=== PATIENT | female | born 1955 | race Caucasian/White ===

== ENCOUNTER 2019-12-17 14:24 | Outpatient (CLI) | payer MEDICARE, SELFPAY ==
--- NOTE | ~2019-12-17 | XR_ITS ---
EXAMINATION: XR abdomen/kub 1V DATE: 12/17/2019 14:47 INDICATION: Acute onset left flank pain TECHNIQUE: A supine view of the abdomen on 2 radiographs was obtained. COMPARISON: CT abdomen and pelvis dated 01/04/2011 FINDINGS: Small amount of gas and small to moderate amount of stool scattered throughout the colon. No dilated gas-filled loops of bowel to suggest obstruction. A few unchanged phleboliths in the left hemipelvis. Atherosclerotic ossification projects over the left sacral ala and slightly inferomedial to the left sacral iliac joint. No evident urolithiasis. Mild lumbar levocurvature. Severe degenerative disc dis ease at L4-L5. Moderate bilateral hip osteoarthritis with prominent subarticular cystic change at the bilateral acetabula. Visualized lung bases are clear. Heart size is normal. IMPRESSION: 1. Normal bowel gas pattern. No evident urolithiasis. 2. Moderate bilateral hip osteoarthritis and severe spondylosis at L4-L5. Reviewed, dictated and finalized at location D.
--- NOTE | ~2019-12-17 | CT_ITS ---
EXAMINATION: CT abdomen pelvis wo con DATE: 12/17/2019 15:10 INDICATION: Left abdominal pain. Nausea. TECHNIQUE: Computed tomography (CT) of the abdomen and pelvis was performed without intravenous contr ast. Automated exposure control and iterative reconstruction technique were employed. The dose-length product was 363.70 mGy-cm. COMPARISON: CT abdomen and pelvis 01/04/2011 FINDINGS: The visualized portions of the lung bases demonstrate mild atelectasis. No pleural effusion . The heart size is normal. No pericardial effusion. There are bilateral breast implants. The liver, gallbladder, spleen, pancreas, adrenal glands, and right kidney are normal. There is a 2 mm stone in left kidney. The appendix is normal. There are no dilated loops of bowel. There are no pathologically enlarged lymph nodes. There is no free intraperitoneal fluid. There is severe lumbar spondylosis and moderate thoracic spondylosis. IMPRESSION: 1. 2 mm nonobstructing left kidney stone. Reviewed, dictated and finalized at location A.
== END 2019-12-17 14:25 | disposition home or self-care (01) ==
PROVIDERS: PCP Family Medicine
DX: N20.0 Calculus of kidney (principal); M16.0 Bilateral primary osteoarthritis of hip
CPT/HCPCS: 74018; 74176

== ENCOUNTER → 2020-03-17 14:32 | Outpatient (CLI) | payer MEDICARE, SELFPAY ==
--- NOTE | ~2020-03-17 | XR_ITS ---
EXAMINATION: XR knee LT min 4V DATE: 03/17/2020 15:19 INDICATION: Left knee pain. TECHNIQUE: 4 views of left knee were obtained. COMPARISON: None. FINDINGS: Bone alignment is normal. No fracture. There is mild tricompartmental osteoarthritis. No kn ee joint effusion. IMPRESSION: 1. Mild left knee osteoarthritis. Reviewed, dictated and finalized at location A.
== END ==
PROVIDERS: PCP Family Medicine; Visit Provider Family Medicine
DX: M25.562 Pain in left knee (principal); M17.12 Unilateral primary osteoarthritis, left knee
CPT/HCPCS: 73564

== ENCOUNTER → 2020-05-20 08:56 | Outpatient (CLI) | payer MEDICARE, SELFPAY ==
--- NOTE | ~2020-05-20 | US_ITS ---
EXAMINATION: US breast BI complete HISTORY: Screening breast ultrasound is performed. Patient does not desire screening mammography. TECHNIQUE: Ultrasound is performed in all four quadrants of the breasts including the bilateral subar eolar regions. FINDINGS: Right breast: There is a 5 mm x 3 mm oval, circumscribed, parallel, hypoechoic mass at the 12:00 loca tion 4 cm from the nipple with no posterior features or internal vascularity. Masses with similar son ographic features measure 3 mm x 2 mm at the 9:00 location 6 cm from the nipple and 2 mm x 1 mm at th e 9:00 location 6 cm from the nipple. There is a 5 mm x 2 mm oval, circumscribed, parallel, anechoic mass with no posterior features or internal vascularity at the 1:00 location 4 cm from the nipple. Left breast: There is a 4 mm x 3 mm oval, circumscribed, parallel, hypoechoic mass with no posterior features at the 2:00 location 4 cm from the nipple. Masses with similar sonographic features measure 3 mm x 2 mm at the 2:00 location 4 cm from the nipple and 3 mm x 2 mm at the 9:00 location 4 cm from the nipple. IMPRESSION: Probably benign bilateral breast masses. Follow-up ultrasound in six months is recommended. Of note, ultrasound is not a substitute for screening mammography and screening mammography is recommended. BI-RADS category 3, probably benign findings. Reviewed, dictated and finalized at location A. HAUL DRIVER
== END ==
PROVIDERS: Visit Provider Obstetrics & Gynecology Gynecology
DX: Z98.82 Breast implant status (principal); R92.8 Other abnormal and inconclusive findings on diagnostic imaging of breast
CPT/HCPCS: 76641

== ENCOUNTER → 2020-07-27 14:29 | Outpatient (CLI) | payer MEDICARE, SELFPAY ==
--- NOTE | ~2020-07-27 | XR_ITS ---
XR_CERV2-3V_CR DATE: 07/27/2020 15:32 INDICATION: Neck pain TECHNIQUE: AP, open mouth, odontoid, lateral and swimmer views COMPARISON: 09/26/2006 cervical spine FINDINGS: There is straightening of the cervical spine. C1 and C2 are normally aligned and the odontoid process is intact. There is minimal anterolisthesis at C2-3, C3-4, C5-6. There is fusion anteriorly at C5-6. There is mild to moderate degenerative disc disease at C4-5. There is severe degenerative disc disease at C6-7. IMPRESSION: Straightening Minimal anterolisthesis at multiple levels Severe degenerative disc disease at C6-7 Mild to moderate degenerative disc disease at C4-5 Reviewed, dictated and finalized at Location A. Reviewed, dictated and finalized at location A. NE GENERATOR ASSEMBLER
== END ==
PROVIDERS: PCP Internal Medicine; Visit Provider Nurse Practitioner
DX: M47.812 Spondylosis without myelopathy or radiculopathy, cervical region (principal)
CPT/HCPCS: 72040

== ENCOUNTER 2020-08-04 14:36 | Outpatient (CLI) | payer MEDICARE, SELFPAY ==
--- NOTE | ~2020-08-04 | MR_ITS ---
EXAMINATION: MR cervical spine wo con EXAM DATE: 08/04/2020 15:40 INDICATION: M54.2 - Cervicalgia. TECHNIQUE: Multi-sequential, multiplanar MR images of the cervical spine were obtained without contra st. Axial T2, axial T2 MERGE sequence. Sagittal T1, T2, T2 fat saturation images also obtained. Th ere is no prior study for comparison. FINDINGS: There is osseous fusion of the C5-6 vertebral bodies. There is moderate to severe disc dis ease C6-7 with 2 mm retrolisthesis. There is mild to moderate disc disease C7-T1 with 2 mm anterolist hesis. The spinal cord signal intensity and intrinsic morphology is normal. Cervicomedullary junction is normal in appearance. There are no suspicious marrow signal abnormalities. Paraspinal soft tiss ue is unremarkable. Level by level evaluation: C2-C3: Disc does not extend beyond the endplate margin. Uncovertebral joint arthropathy: Mild to moderate right. Facet joint arthropathy: Moderate to severe right, mild to moderate left. Neural foraminal stenosis: Mild right. Central canal stenosis: No stenosis. C3-C4: Disc does not extend beyond the endplate margin. Uncovertebral joint arthropathy: Mild bilateral. Facet joint arthropathy: Moderate to severe left, moderate right. Neural foraminal stenosis: Mild to moderate left, mild right. Central canal stenosis: No stenosis. C4-C5: Disc does not extend beyond the endplate margin. Uncovertebral joint arthropathy: Mild bilateral. Facet joint arthropathy: Severe left, mild to moderate right. Neural foraminal stenosis: No stenosis. Central canal stenosis: No stenosis. C5-C6: This level is fused. Uncovertebral joint arthropathy: Fused. Facet joint arthropathy: None. Neural foraminal stenosis: No stenosis. Central canal stenosis: No stenosis. C6-C7: There is a mild to moderate diffuse disc bulge. Uncovertebral joint arthropathy: Severe bilateral. Facet joint arthropathy: Mild to moderate bilateral. Neural foraminal stenosis: Severe left, moderate to severe right. Central canal stenosis: Mild to moderate . Central canal measures 6-7 mm in mid sagittal AP diameter . C7-T1: There is a mild diffuse disc bulge. Uncovertebral joint arthropathy: Moderate to severe bilateral. Facet joint arthropathy: Moderate right, mild to moderate left. Neural foraminal stenosis: Mild to moderate left, mild right. Central canal stenosis: Mild. IMPRESSION: 1. Cervical spondylosis most advanced C6-7. 2. Fusion C5-6. Reviewed, dictated and finalized at location B. IC ADMINISTRATOR
== END 2020-08-04 14:37 | disposition home or self-care (01) ==
PROVIDERS: Family Provider Family Medicine; PCP Internal Medicine; Visit Provider Nurse Practitioner
DX: M54.2 Cervicalgia (principal); Z98.890 Other specified postprocedural states
CPT/HCPCS: 72141

== ENCOUNTER → 2021-02-04 09:20 | Outpatient (CLI) | payer MEDICARE, SELFPAY ==
--- NOTE | ~2021-02-04 | MMUS_ITS ---
EXAMINATION: MM scrn jam implant BI w mila, US breast BI complete HISTORY: Follow-up breast mass TECHNIQUE: Screening bilateral mammogram including 3-D tomosynthesis images of the breasts were perfo rmed and synthetic 2-D images were generated. CAD analysis was submitted and interpreted. High resolu tion bilateral complete breast ultrasound was performed. COMPARISON: Comparison to multiple prior studies sequentially, with oldest reviewed study dated 02/18. BREAST PARENCHYMAL COMPOSITION: Breast composed of scattered areas of fibroglandular density. FINDINGS: MAMMOGRAPHIC FINDINGS: There are no suspicious masses, calcifications or architectural distortion in either breast to sugges t malignancy. ULTRASOUND: Right breast ultrasound: At 12:00, 4 cm from the nipple, just superficial to the breast implant there is an oval hypoechoic mass measuring 4 x 3 x 3 mm with mixed posterior attenuation. No internal vasc ularity. At 1:00, 4 cm from the nipple, there is a 3 mm cyst. At 9:00, 6 cm from the nipple, there is a 3 mm cyst. Left breast ultrasound: Near the areola there is a 2 mm cyst. At 9:00, 4 cm from the nipple, there is a 3 mm cyst. IMPRESSION: 1. Probable benign 4 mm hypoechoic right breast mass at 12:00, 4 cm from the nipple. No evidence for malignancy in the left breast. 2. Recommend 6 month follow-up targeted right breast ultrasound BI-RADS category 3, probably benign findings. Reviewed, dictated and finalized at location A. IMPRESSION: 1. Probable benign 4 mm hypoechoic right breast mass at 12:00, 4 cm from the ni pple. No evidence for malignancy in the left breast. 2. Recommend 6 month follow-up targeted right breast ultrasound BI-RADS category 3, probably benign findings.
== END ==
PROVIDERS: Visit Provider Obstetrics & Gynecology Gynecology
DX: Z12.31 Encounter for screening mammogram for malignant neoplasm of breast (principal); N63.15 Unspecified lump in the right breast, overlapping quadrants
CPT/HCPCS: 76641; 77063; 77067

== ENCOUNTER 2021-06-15 07:44 | Emergency (ER) | payer MEDICARE, SELFPAY ==
--- NOTE | ~2021-06-15 | CT_ITS ---
EXAMINATION: CT abdomen pelvis w con EXAM DATE: 06/15/2021 09:18 INDICATION: Left lower quadrant pain, acute chills. TECHNIQUE: Spiral CT of the abdomen and pelvis was performed following intravenous injection of 100 m L Omnipaque 350. Axial, coronal and sagittal images of the abdomen and pelvis were reviewed. The do se-length product (DLP) for this examination was 418.48 mGy-cm. The exposure was tailored according to patient size (auto mA exposure control), and iterative reconstruction (ASIR) was used as additiona l dose reduction technique. Comparison is made to prior examination from 12/17/2019. FINDINGS: The liver, spleen, adrenal glands and pancreas are unremarkable. Gallbladder is unremarkab le. No biliary obstruction. There is punctate 2 mm left UVJ calcification identified on axial image 159. There is mild left hydro ureteronephrosis mildly delayed left nephrogram compared to right. Also some enhancement of the uroth elium, possible upper urinary tract infection. No evidence of pyelonephritis. Additional 3 mm left davis perior calyceal stone. Several subcentimeter hypodensities statistically most likely cysts. The uter us is not identified and has likely been surgically resected. The bladder is unremarkable. There is no retroperitoneal or pelvic lymphadenopathy. There is mild scattered arteriosclerotic disease. The appendix is normal. The stomach and small bowel are unremarkable. There is expected amount of c olonic stool. There is mild scattered colonic diverticulosis. There is no adjacent inflammatory betancur ge to suggest diverticulitis. No free intraperitoneal gas. The heart is normal in size. There are no pericardial or pleural effusions. There is 4 mm right middle lobe nodule. There are no osteobla stic or osteolytic lesions identified. IMPRESSION: 1. Left UVJ 2 mm stone, mild obstructive nephropathy and possible upper urinary tract infection. 2. Small left nephrolithiasis. 3. Mild scattered colonic diverticulosis. Reviewed, dictated and finalized at location B. ICAL TECHNICIAN IMPRESSION: 1. Left UVJ 2 mm stone, mild obstructive nephropathy and possible upper urinar y tract infection. 2. Small left nephrolithiasis. 3. Mild scattered colonic diverticulosis.
[2021-06-15 08:00] VITALS: BP 190/95; PULSE 84; RESP 16; TEMP 36.8; O2SAT 97
--- NOTE | 2021-06-15 08:02 | ED.GENADULT ---
HPI - General Adult General Chief complaint: Abdominal Pain Stated complaint: left abd pain Time Seen by Provider: 06/15/21 07:56 History of Present Illness HPI narrative: Patient is a 5-year-old female presents the emergency department with chief complaint of left lower quadrant pain. Patient reports that in the last 24 hours she started having pain in the left lower quadrant patient states she had a feeling like she is going to vomit but has not actually vomited and does have some reflux with this. Patient states she had some loose stools but no blood in her stool patient states the pain is worse with movement and improved with rest. Patient states the pain starts in the left lower quadrant and radiates to her back. Related Data Home Medications Medication Instructions Recorded Confirmed Bcomplex-C #13-folic acid 1 mg-vit tablet PO 03/16/20 05/03/21 D3 1,750 unit disintegrating tablet coenzyme Q10 100 mg capsule 100 mg PO DAILY 03/16/20 05/03/21 ergocalciferol (vitamin D2) 1,250 1,250 mcg PO WEEKLY 03/16/20 05/03/21 mcg (50,000 unit) capsule multivitamin 1 tablet PO DAILY 03/16/20 05/03/21 omega-3 fatty acids 1,000 mg 1,000 mg PO DAILY 03/16/20 05/03/21 capsule rosuvastatin 10 mg tablet 10 mg PO DAILY 03/16/20 05/03/21 Allergies Allergy/AdvReac Type Severity Reaction Status Date / Time vancomycin Allergy Severe Hives Verified 06/15/21 08:20 trimethoprim Allergy Unknown rash Verified 06/15/21 08:20 sulfamethoxazole AdvReac Severe Nausea and Verified 06/15/21 08:20 Vomiting sulfamethizole AdvReac Mild Nausea Verified 06/15/21 08:20 Review of Systems Review of Systems: A 10 system review of systems was completed on the patient and is negative except for what is stated in the HPI. Nursing and ancillary documentation was reviewed. 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) Irritable bowel syndrome Neck pain with history of cervical spinal surgery Other and unspecified hyperlipidemia Tobacco abuse Surgical History Surgical History History of bladder suspension procedure History of breast augmentation History of hysterectomy History of lumbar fusion Hx of fusion of cervical spine Family History Family History Mother Family history of diabetes mellitus in first degree relative Heart disease Father Gunshot wound Grandparent Dementia Sibling Cerebrovascular accident Social History Social History Smoking packs per day: 1 Smoking cigarettes per day: 20.0 Years smoked: 30 Smoking pack-years: 30.00 Smoking status: Former smoker Second hand tobacco smoke exposure: No Smoking end date: 07/02/04 Alcohol intake: current Alcohol use details: social Substance use: never Substance use type: does not use Exam Narrative: GENERAL: Well-appearing, well-nourished, and in no acute distress. HEAD: Normocephalic, atraumatic. EYES: PERRLA and EOMI. ENT: Nares clear, no rhinorrhea or epistaxis. Mucous membranes moist. NECK: Supple. CHEST: Clear to auscultation. No respiratory distress. HEART: Regular rate and rhythm. No murmur heard. Normal peripheral pulses. ABDOMEN: Soft, tender to palpation in the left lower quadrant, nondistended, normal active bowel sounds. EXTREMITIES: Normal range of motion. No edema. SKIN: Warm, dry, no rash. NEURO: No focal deficits. Alert and oriented x3. PSYCH: Normal mood and affect. Course Vital Signs Vital signs: Vital Signs Temperature 36.8 C 06/15/21 08:00 Pulse Rate 84 06/15/21 08:00 Respir
[2021-06-15] MEDS: ONDANSETRON INJ 4 MG/2 ML VIAL IV PUSH (08:28)
[2021-06-15] MEDS: SODIUM CHLORIDE 0.9% IV 1,000 ML 999 ML IV CONT (08:28)
[2021-06-15] MEDS: MORPHINE SULFATE (*CRX) 4 MG/ML INJ IV PUSH (08:28)
[2021-06-15 08:36] LABS: Basophils Absolute Auto 0.1 K/mm3 (0.0-0.1); Basophils Percent Auto 0.4 % (0.2-1.2); Eosinophils Absolute Auto 0.1 K/mm3 (0-0.3); Eosinophils Percent Auto 0.4 % (0-4.4); Hematocrit 42.3 % (37.0-47.0); Hemoglobin 14.5 g/dL (12.0-15.0); Immature Granulocyte Absolute 0.04 K/mm3 (0.00-0.031); Immature Granulocyte Percent A 0.3 % (0-0.5); Lymphocytes Absolute Auto 1.28 K/mm3 (0.9-3.2); Lymphocytes Percent Auto 9.9 % (18.3-44.2); Mean Corpuscular HGB Conc 34.3 g/dl (32-36); Mean Corpuscular Hemoglobin 32.7 pg (26-34); Mean Corpuscular Volume 95.3 fl (80-100); Mean Platelet Volume 10.7 fl (7.4-10.4); Monocytes Absolute Auto 0.6 K/mm3 (0.1-0.6); Monocytes Percent Auto 4.7 % (2.6-8.5); Neutrophils Absolute Auto 10.9 K/mm3 (1.3-6.7); Neutrophils Percent Auto 84.3 % (45.5-73.1); Platelet Count Result 208 k/mm3 (150-375); Red Blood Count 4.44 M/mm3 (4.2-5.4); Red Cell Distribution Width 12.5 % (11.5-14.5); White Blood Count 12.9 K/mm3 (4.5-10.0)
[2021-06-15 08:51] LABS: Add Urine Microscopic? YES; Appearance Urine Cloudy (Clear); Bacteria Urine Trace /hpf; Bilirubin Urine Negative (Negative); Blood Urine Negative (Negative); Color Urine Yellow (Yellow); Glucose Urine UA Negative (Negative); Ketones Urine Negative (Negative); Leukocyte Esterase Ur Negative LEU/UL (Negative); Mucus Urine Rare /lpf; Nitrate Urine Negative (Negative); Protein Urine Negative (Negative); Specific Grav Ur 1.023 (1.001-1.035); Squamous Epithelial Cell Urine Many /hpf (Few); Urobilinogen Urine Negative mg/dL (<2.0); WBC Urine 0-3 /hpf
[2021-06-15 08:52] LABS: Alanine Aminotransferase 33 U/L (4-35); Albumin Level 4.3 g/dL (3.5-5.1); Alkaline Phosphatase 84 U/L (38-126); Anion Gap 8 mmol/L (8-16); Aspartate Amino Transferase 35 U/L (14-36); Bilirubin,Total 0.4 mg/dL (0.2-1.3); Blood Urea Nitrogen 31 mg/dL (7-17); Calcium 9.2 mg/dL (8.4-10.2); Carbon Dioxide 24 mmol/L (22-30); Chloride 103 mmol/L (98-107); Estimated CRCL calculation 58 ml/min; Estimated Glomerular Filt Rate > 60; Glucose 122 mg/dL (65-110); Lactic Acid Reflex 1.4 mmol/L (0.7-2.1); Lipase 151 U/L (23-300); Potassium 4.2 mmol/L (3.4-5.0); Sodium 135 mmol/L (137-145)
[2021-06-15] MEDS: HYDROmorphone HCL INJ (*CRX) 1 MG/ML SYR IV PUSH (10:03)
[2021-06-15 11:07] VITALS: BP 126/76; PULSE 78; RESP 18; O2SAT 99
== END 2021-06-15 11:09 | disposition home or self-care (01) ==
PROVIDERS: Emergency Provider Emergency Medicine; PCP Internal Medicine
DX: N20.1 Calculus of ureter (principal); I10 Essential (primary) hypertension; M79.7 Fibromyalgia; Z87.891 Personal history of nicotine dependence
CPT/HCPCS: 36415; 74177; 80053; 81001; 83605; 83690; 85025; 96361; 96374; 96375; 99284; J1170; J2270; J2405; J7030; Q9967

== ENCOUNTER 2021-08-16 14:34 | Outpatient (CLI) | payer MEDICARE, SELFPAY ==
--- NOTE | ~2021-08-16 | MMUS_ITS ---
EXAMINATION: MM diag jam implant BI w mila, US breast BI limited HISTORY: Left breast pain. Follow-up right breast mass. TECHNIQUE: Additional 3-D tomosynthesis images of the breasts were performed and synthetic 2-D images were generated. CAD analysis was submitted and interpreted. High resolution limited bilateral breast ultrasound was performed. COMPARISON: Comparison to multiple prior studies sequentially, with oldest reviewed study dated 02/18. BREAST PARENCHYMAL COMPOSITION: Breast composed of scattered areas of fibroglandular density. FINDINGS: MAMMOGRAPHIC FINDINGS: There are no new masses, calcifications or architectural distortion in either breast to suggest malig tin. ULTRASOUND: Complete bilateral US of all 4 quadrants of the breasts and retroareolar region was reviewed. Right breast ultrasound: At 12:00, 4 cm from the nipple there is a stable oval circumscribed hypoecho ic mass measuring 5 x 3 x 3 mm without posterior features or internal vascularity. There is an echoge bhanu hilum, compatible with benign intramammary lymph node. This is unchanged dating back to 0. Left breast ultrasound: At 9:00, 3 cm from the nipple there is a 4 mm complicated cyst. No suspicious masses to suggest malignancy. IMPRESSION: 1. No evidence for malignancy in either breast. Benign findings. 2. Routine yearly screening mammogram and regular clinical breast examination are recommended. BI-RADS Category 2: Benign finding(s). Reviewed, dictated and finalized at location A. FRAME TENDER IMPRESSION: 1. No evidence for malignancy in either breast. Benign findings. 2. Routine yearly screening mammogram and regular clinical breast examination a re recommended. BI-RADS Category 2: Benign finding(s).
== END 2021-08-16 14:35 ==
PROVIDERS: Visit Provider Obstetrics & Gynecology Gynecology
DX: R92.8 Other abnormal and inconclusive findings on diagnostic imaging of breast (principal); N63.15 Unspecified lump in the right breast, overlapping quadrants; N60.02 Solitary cyst of left breast
CPT/HCPCS: 76642; 77062; 77066; G0279

== ENCOUNTER → 2022-04-14 14:40 | Outpatient (CLI) | payer MEDICARE, SELFPAY ==
--- NOTE | ~2022-04-14 | DEXA_ITS ---
Bone Density Report Name: PORFIRIO CALHOUN Age: 66 Sex: Female Ethnicity: White Date of : 1955 Indication: monitoring treatment; asthma or emphysema; hysterectomy; postmenopausal Referring Provider: GEORGE SHELBY Study: Bone densitometry was performed. Exam Date: April 14, 2022 Accession number: [id number] Bone Density: Region BMD T-score Z-score Classification AP Spine (L1-L4) 1.385 3.1 5.1 Normal Femoral Neck (Left) 0.906 0.5 2.2 Normal Total Hip (Left) 1.134 1.6 3.0 Normal Femoral Neck (Right) 0.822 -0.2 1.5 Normal Total Hip (Right) 1.200 2.1 3.5 Normal Total Hip Mean 1.167 1.9 3.3 Normal World Health Organization criteria for BMD impression classify patients as: Normal (T-score at or above -1.0), Osteopenia (T-score between -1.0 and -2.5), or Osteoporosis (T-score at or below -2.5). 10-year Fracture Risk: FRAX not reported because: All T-scores for Spine Total, Hip Total, Femoral Neck at or above -1.0 Treated for osteoporosis Previous Exams: Region Exam Age BMD T-score BMD Change BMD Change Date g/cm2 vs Baseline vs Previous AP Spine(L1-L4) 04/14/2022 66 1.385 3.1 0.337* 0.104* 02/21/2018 62 1.282 2.1 0.234* 0.211* 12/23/2012 57 1.071 0.2 0.023* -0.113* 11/19/2009 53 1.184 1.2 0.136* 0.159* 11/04/2007 51 1.026 -0.2 -0.023 -0.023 02/05/2006 50 1.048 0.0 Total Hip(Left) 04/14/2022 66 1.134 1.6 0.018 -0.008 02/21/2018 62 1.142 1.6 0.026 0.030* 12/23/2012 57 1.112 1.4 -0.004 -0.035* 11/19/2009 53 1.147 1.7 0.031* 0.058* 11/04/2007 51 1.089 1.2 -0.027 -0.027 02/05/2006 50 1.116 1.4 Total Hip(Right) 04/14/2022 66 1.200 2.1 0.056* 0.029* 02/21/2018 62 1.171 1.9 0.027 0.052* 12/23/2012 57 1.119 1.4 -0.026 -0.004 11/19/2009 53 1.122 1.5 -0.022 0.053* 11/04/2007 51 1.069 1.0 -0.075* -0.075* 02/05/2006 50 1.144 1.7 *Denotes significance at 95% confidence level, LSC for AP Spine = 0.022 g/cm2, LSC for Total Hip = 0.027 g/cm2 Clinical Information Provided by Patient: Is being treated for osteoporosis Has used the following medications: HRT (i.e. estrogen/hormone therapy), Vitamin D Has the following medical conditions: Asth
== END ==
PROVIDERS: PCP Internal Medicine; Visit Provider Obstetrics & Gynecology Gynecology
DX: Z78.0 Asymptomatic menopausal state (principal)
CPT/HCPCS: 77080

== ENCOUNTER → 2022-10-30 14:37 | Outpatient (CLI) | payer OTHER, SELFPAY ==
--- NOTE | ~2022-10-30 | MM_ITS ---
EXAMINATION: MM scrn jam implant BI w mila HISTORY: Screening mammogram TECHNIQUE: Craniocaudal and mediolateral oblique 3-D tomosynthesis images with implant displacement a nd synthetic 2-D images were generated. Craniocaudal and mediolateral oblique views of the breasts wi thout implant displacement were obtained using full field digital mammography. CAD analysis was submi tted and interpreted. COMPARISON: 08/16/2021, 02/14/2021, 05/03/2018, 04/16/2017 BREAST PARENCHYMAL COMPOSITION: The breasts are heterogeneously dense, which may obscure small masses . FINDINGS: There is no evidence of suspicious mass, calcification, or architectural distortion to sugg est malignancy in either breast. There has been no suspicious interval change. IMPRESSION: 1. No mammographic evidence of malignancy. 2. Recommend routine screening mammography in one year. BI-RADS Category 1: Negative Reviewed, dictated and finalized at location A.
== END ==
PROVIDERS: PCP Obstetrics & Gynecology Gynecology; Visit Provider Obstetrics & Gynecology Gynecology
DX: Z12.31 Encounter for screening mammogram for malignant neoplasm of breast (principal)
CPT/HCPCS: 77063; 77067

== ENCOUNTER 2023-12-14 12:17 | Outpatient (CLI) | payer OTHER, SELFPAY ==
--- NOTE | ~2023-12-14 | MM_ITS ---
EXAMINATION: MM scrn jam implant BI w mila HISTORY: Screening mammogram TECHNIQUE: Craniocaudal and mediolateral oblique 3-D tomosynthesis images with implant displacement a nd synthetic 2-D images were generated. Craniocaudal and mediolateral oblique views of the breasts wi thout implant displacement were obtained using full field digital mammography. CAD analysis was submi tted and interpreted. COMPARISON: Comparison to multiple prior studies sequentially, with oldest reviewed study dated 04/01. BREAST PARENCHYMAL COMPOSITION: Not dense: There are scattered areas of fibroglandular density. FINDINGS: Stable benign-appearing left breast masses. There is no evidence of suspicious mass, calcif ication, or architectural distortion to suggest malignancy in either breast. There has been no suspic ious interval change. IMPRESSION: 1. No mammographic evidence of malignancy. 2. Recommend routine screening mammography in one year. BI-RADS Category 1: Negative Reviewed, dictated and finalized at location B.
== END 2023-12-14 12:18 ==
LOC: MICIMG 12:17
PROVIDERS: PCP Obstetrics & Gynecology Gynecology; Visit Provider Obstetrics & Gynecology Gynecology
DX: Z12.31 Encounter for screening mammogram for malignant neoplasm of breast (principal)
CPT/HCPCS: 77063; 77067

== ENCOUNTER 2024-01-19 10:32 | Emergency (ER) | payer MEDICARE, SELFPAY ==
[2024-01-19 10:39] VITALS: BP 148/80; PULSE 96; RESP 20; TEMP 36.2; O2SAT 95
[2024-01-19 11:20] LABS: Appearance Urine Clear (Clear); Bacteria Urine 4+ /hpf; Bilirubin Urine Negative (Negative); Blood Urine Negative (Negative); Color Urine Dark Yellow (Yellow); Glucose Urine UA Negative (Negative); Ketones Urine 2+ mg/dL (Negative); Leukocyte Esterase Ur 1+ LEU/UL (Negative); Nitrate Urine Positive (Negative); Non Pathogenic Casts 0-2; Protein Urine Trace mg/dL (Negative); RBC Urine 0-2 /hpf (0-2); Specific Grav Ur 1.009 (1.001-1.035); Squamous Epithelial Cell Urine Occasional /hpf (Few)
[2024-01-19 11:26] LABS: Add Urine Microscopic? YES
--- NOTE | 2024-01-19 12:10 | ED.FEMALEGU ---
HPI - Female Genitourinary General Chief complaint: Urogenital-Female Stated complaint: UTI symptoms Time Seen by Provider: 01/19/24 12:09 Source: patient and family ( Maximino) Mode of arrival: ambulatory Limitations: no limitations History of Present Illness HPI Narrative: Patient presents UTI symptoms for the past 6 days. She is also having bilateral back/flank pain. She is experiencing painful urination as well as intermittent nausea and fevers and chills. Related Data Home Medications Medication Instructions Recorded Confirmed Bcomplex-C #13-folic acid 1 mg-vit tablet PO 03/16/20 12/28/23 D3 1,750 unit disintegrating tablet coenzyme Q10 100 mg capsule (Co 100 mg PO DAILY 03/16/20 12/28/23 Q-10) multivitamin 1 tablet PO DAILY 03/16/20 12/28/23 omega-3 fatty acids 1,000 mg 1,000 mg PO DAILY 03/16/20 12/28/23 capsule (Fish Oil Concentrate) rosuvastatin 10 mg tablet 10 mg PO DAILY 03/16/20 12/28/23 ergocalciferol (vitamin D2) 1,250 1,250 mcg PO WEEKLY 11/14/22 12/28/23 mcg (50,000 unit) capsule ginkgo biloba 40 mg tablet 40 mg PO DAILY 05/21/23 12/28/23 Allergies Allergy/AdvReac Type Severity Reaction Status Date / Time vancomycin Allergy Severe Hives Verified 01/19/24 12:42 trimethoprim Allergy Unknown rash Verified 01/19/24 12:42 sulfamethoxazole AdvReac Severe Nausea and Verified 01/19/24 12:42 Vomiting sulfamethizole AdvReac Mild Nausea Verified 01/19/24 12:42 [facility] Past Medical History Medical History Asthma Carotid stenosis, right Coronary artery disease TAN (dyspnea on exertion) Essential (primary) hypertension Fibromyalgia Hemochromatosis 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) Irritable bowel syndrome Neck pain with history of cervical spinal surgery Other and unspecified hyperlipidemia Recurrent UTI Surgical History Surgical History History of bladder suspension procedure History of breast augmentation History of hysterectomy History of lumbar fusion Hx of fusion of cervical spine Family History Family History Mother Family history of diabetes mellitus in first degree relative Heart disease Father Gunshot wound Grandparent Dementia Sibling Cerebrovascular accident Social History Social History (Updated 01/20/24 @ 12:28 by Sola Mora MD) Smoking packs per day: 1 Smoking cigarettes per day: 20.0 Years smoked: 30 Smoking pack-years: 30.00 Smoking status: Former smoker Second hand tobacco smoke exposure: Yes Smoking end date: 07/02/04 Alcohol intake: former Alcohol use details: social Substance use: never Substance use type: does not use Lack of Transportation: No Lack of Food: Never True Current Housing: I Have Housing Concerned About Future Housing: No Difficulty Paying Gas/Electric Bills: No Difficulty Paying for Meds: No Currently Unemployed: No Education: High School Diploma/GED Difficulty w/ Childcare or Family Care: No Living arrangements: with family Additional living arrangements comments: Maximino Exam Narrative: GENERAL: well-nourished , in mild acute distress HEAD: Normocephalic, atraumatic. EYES: Non injected, non icteric ENT: Nares clear, no rhinorrhea or epistaxis. Moist mucous membranes NECK: Supple. CHEST: Speaking in full sentences. No respiratory distress. HEART: Regular rate and rhythm. . ABDOMEN: Soft, nondistended. : Mild b/l CVA tenderness EXTREMITIES: Normal range of motion. No edema. SKIN: Warm, dry, no rash. NEURO: No focal deficits. Alert and oriented x3. PSYCH: Normal mood and affect. Course Vital Signs Vital signs: Vital Signs Temperature 97.1 F L 01/19/24 10:39 Pulse Rate 96 01/19/24 10:39 Respiratory Rate 20 01/19/24 10:39 Blood Pressure 1
[2024-01-19] MEDS: ONDANSETRON HCL ODT 4 MG TABLET PO (12:42)
[2024-01-19] MEDS: CEPHALEXIN 500 MG CAPSULE PO (12:42)
== END 2024-01-19 12:46 | disposition home or self-care (01) ==
PROVIDERS: Emergency Medicine; Emergency Provider Student in an Organized Health Care Education/Training Program; PCP Family Medicine
DX: N12 Tubulo-interstitial nephritis, not specified as acute or chronic (principal); I65.29 Occlusion and stenosis of unspecified carotid artery; I10 Essential (primary) hypertension; J45.909 Unspecified asthma, uncomplicated; M79.7 Fibromyalgia; K58.9 Irritable bowel syndrome, unspecified; Z98.1 Arthrodesis status; Z87.440 Personal history of urinary (tract) infections; Z87.891 Personal history of nicotine dependence; Z90.710 Acquired absence of both cervix and uterus; Z79.82 Long term (current) use of aspirin; Z79.899 Other long term (current) drug therapy
CPT/HCPCS: 81001; 87077; 87086; 87088; 87186; 99283; A9270

== ENCOUNTER 2024-03-27 19:16 | Emergency (ER) | payer MEDICARE, SELFPAY ==
--- NOTE | ~2024-03-27 | CT_ITS ---
EXAMINATION: CT abdomen pelvis wo con DATE: 03/27/2024 22:42 INDICATION: L flank tenderness, Hx of kidney stones TECHNIQUE: Computed tomography (CT) of the abdomen and pelvis was performed without intravenous contr ast. Automated exposure control and iterative reconstruction technique were employed. The dose-length product was 415.83 mGy-cm. COMPARISON: 06/15/2021, report only. FINDINGS: Lower thorax: Bilateral breast implants. Bibasilar atelectasis/scarring. Liver: Normal. Biliary/Gallbladder: Gallbladder is normal. No bile duct dilation. Pancreas: No mass or duct dilation. Spleen: Normal. Adrenals:No mass. Kidneys: No suspicious mass. Punctate right midpole calcification. Moderate right perinephric strandi ng. Moderate right hydronephrosis. GI tract: No small or large bowel dilation. Normal appendix. Diverticulosis without diverticulitis. Mesentery/Peritoneum: No ascites, mass, or free air. Retroperitoneum: No mass. Atherosclerotic abdominal aortic and/or arterial calcifications. Small sacc ular outpouching off the right side of the infrarenal abdominal aorta measuring 2.1 x 1.4 x 0.6 cm. Pelvis: Distended urinary bladder without wall thickening. 5 mm calcification in the left UVJ. Absent uterus. Bilateral ovaries not confidently visualized. Soft Tissues: Soft tissues and body wall unremarkable. Bones: No acute osseous finding. IMPRESSION: 5 mm calcification in the left UVJ causing moderate obstructive uropathy. Small saccular infrarenal abdominal aortic aneurysm measuring 2.1 x 1.4 x 0.6 cm. Reviewed, dictated and finalized at location K. IMPRESSION: 5 mm calcification in the left UVJ causing moderate obstructive uropathy. Small saccular infrarenal abdominal aortic aneurysm measuring 2.1 x 1.4 x 0.6 c m.
[2024-03-27 19:52] VITALS: BP 148/105; PULSE 75; RESP 18; TEMP 36.2; O2SAT 100
[2024-03-27 20:11] LABS: Add Urine Microscopic? YES; Appearance Urine Clear (Clear); Bilirubin Urine Negative (Negative); Blood Urine Negative (Negative); Color Urine Dark Yellow (Yellow); Glucose Urine UA Negative (Negative); Ketones Urine 1+ mg/dL (Negative); Leukocyte Esterase Ur Negative LEU/UL (Negative); Nitrate Urine Negative (Negative); Protein Urine Negative (Negative); Specific Grav Ur 1.024 (1.001-1.035); Urobilinogen Urine 0.2 mg/dL (<2.0)
--- NOTE | 2024-03-27 22:14 | ED.ABDPAIN ---
HPI - Abdominal Pain General Chief Complaint: Abdominal Pain Stated Complaint: abd pain and back pain Time Seen by Provider: 03/27/24 22:11 Source: patient Mode of arrival: ambulatory Limitations: no limitations History of Present Illness HPI narrative: This is a 68-year-old female with PMH of ureterolithiasis, CAD, HTN, fibromyalgia, IBS who presents to the ED for chief complaint of left flank pain onset earlier today. States that the pain comes in waves and is associated with nausea but no vomiting. Reports the pain is in the left flank and shoots forwarded to the left lower abdomen. States that she has had kidney stones in the past and this feels similar. Endorses difficulty with urination but no burning or blood. Denies fevers, chills, diarrhea, chest pain, shortness of breath, cough. Related Data Home Medications Medication Instructions Recorded Confirmed Bcomplex-C #13-folic acid 1 mg-vit tablet PO 03/16/20 01/29/24 D3 1,750 unit disintegrating tablet coenzyme Q10 100 mg capsule (Co 100 mg PO DAILY 03/16/20 01/29/24 Q-10) multivitamin 1 tablet PO DAILY 03/16/20 01/29/24 omega-3 fatty acids 1,000 mg 1,000 mg PO DAILY 03/16/20 01/29/24 capsule (Fish Oil Concentrate) rosuvastatin 10 mg tablet 10 mg PO DAILY 03/16/20 01/29/24 ergocalciferol (vitamin D2) 1,250 1,250 mcg PO WEEKLY 11/14/22 01/29/24 mcg (50,000 unit) capsule ginkgo biloba 40 mg tablet 40 mg PO DAILY 05/21/23 01/29/24 cephalexin 500 mg capsule 500 mg PO Q12H 01/29/24 01/29/24 Allergies Allergy/AdvReac Type Severity Reaction Status Date / Time vancomycin Allergy Severe Hives Verified 03/27/24 19:52 trimethoprim Allergy Unknown rash Verified 03/27/24 19:52 sulfamethoxazole AdvReac Severe Nausea and Verified 03/27/24 19:52 Vomiting sulfamethizole AdvReac Mild Nausea Verified 03/27/24 19:52 Review of Systems Review of Systems: All systems as dictated in HPI [facility] Past Medical History Medical History Asthma Carotid stenosis, right Coronary artery disease TAN (dyspnea on exertion) Essential (primary) hypertension Fibromyalgia Hemochromatosis 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) Irritable bowel syndrome Neck pain with history of cervical spinal surgery Other and unspecified hyperlipidemia Recurrent UTI Surgical History Surgical History History of bladder suspension procedure History of breast augmentation History of hysterectomy History of lumbar fusion Hx of fusion of cervical spine Family History Family History Mother Family history of diabetes mellitus in first degree relative Heart disease Father Gunshot wound Grandparent Dementia Sibling Cerebrovascular accident Social History Social History Smoking packs per day: 1 Smoking cigarettes per day: 20.0 Years smoked: 30 Smoking pack-years: 30.00 Smoking status: Former smoker Second hand tobacco smoke exposure: Yes Smoking end date: 07/02/04 Alcohol intake: former Alcohol use details: social Substance use: never Substance use type: does not use Do You Feel Safe in your Home?: Yes Lack of Transportation: No Lack of Food: Never True Current Housing: I Have Housing Concerned About Future Housing: No Difficulty Paying Gas/Electric Bills: No Difficulty Paying for Meds: No Currently Unemployed: No Education: High School Diploma/GED Difficulty w/ Childcare or Family Care: No Living arrangements: with family Additional living arrangements comments: Maximino Occupation/Education: retired Gender identity (if verbalized by the patient): Female Sexual Orientation (if Verbalized by the Patient): Straight or Heterosexual Spiritual care concerns: No Agree to bl
[2024-03-27 22:18] LABS: Basophils Percent Auto 0.2 % (0.2-1.2); Eosinophils Percent Auto 0.2 % (0-4.4); Hematocrit 43.8 % (37.0-47.0); Hemoglobin 15.1 g/dL (12.0-15.0); Immature Granulocyte Absolute 0.04 K/mm3 (0.00-0.031); Immature Granulocyte Percent A 0.3 % (0-0.5); Lymphocytes Absolute Auto 1.02 K/mm3 (0.9-3.2); Lymphocytes Percent Auto 8.1 % (18.3-44.2); Mean Corpuscular HGB Conc 34.5 g/dl (32-36); Mean Corpuscular Hemoglobin 33.5 pg (26-34); Mean Corpuscular Volume 97.1 fl (80-100); Monocytes Absolute Auto 0.6 K/mm3 (0.1-0.6); Neutrophils Absolute Auto 10.8 K/mm3 (1.3-6.7); Neutrophils Percent Auto 86.2 % (45.5-73.1); Platelet Count Result 193 k/mm3 (150-375); Red Blood Count 4.51 M/mm3 (4.2-5.4); Red Cell Distribution Width 12.7 % (11.5-14.5); White Blood Count 12.6 K/mm3 (4.5-10.0)
[2024-03-27 22:28] LABS: Alanine Aminotransferase 36 U/L (6-35); Albumin Level 4.6 g/dL (3.5-5.1); Alkaline Phosphatase 89 U/L (38-126); Anion Gap 6 mmol/L (4-12); Aspartate Amino Transferase 42 U/L (14-36); Bilirubin,Total 0.5 mg/dL (0.2-1.3); Blood Urea Nitrogen 29 mg/dL (7-17); Calcium 9.1 mg/dL (8.4-10.2); Carbon Dioxide 29 mmol/L (22-30); Chloride 100 mmol/L (98-107); Estimated Glomerular Filt Rate > 60; Glucose 101 mg/dL (65-110); Lipase 186 U/L (23-300); Potassium 4.1 mmol/L (3.4-5.0); Sodium 135 mmol/L (137-145)
[2024-03-27] MEDS: HYDROmorphone HCL INJ (*CRX) 1 MG/ML SYR 0.5 MG IV PUSH ×2 (22:35→23:40)
[2024-03-27] MEDS: ONDANSETRON INJ 4 MG/2 ML VIAL IV PUSH (22:35)
[2024-03-27] MEDS: SODIUM CHLORIDE 0.9% IV 1,000 ML 999 ML IV CONT (22:36)
[2024-03-27] MEDS: KETOROLAC 30 MG/ML VIAL (*BKC) IV PUSH (23:40)
[2024-03-27 23:52] VITALS: BP 141/67; PULSE 79; RESP 18; O2SAT 97
== END 2024-03-28 00:34 | disposition home or self-care (01) ==
PROVIDERS: Emergency Medicine; Emergency Provider Physician Assistant; PCP Family Medicine
DX: N20.1 Calculus of ureter (principal); I25.10 Atherosclerotic heart disease of native coronary artery without angina pectoris; I10 Essential (primary) hypertension; J45.909 Unspecified asthma, uncomplicated; Z87.891 Personal history of nicotine dependence; E78.5 Hyperlipidemia, unspecified
CPT/HCPCS: 36415; 74176; 80053; 81001; 83690; 85025; 96361; 96374; 96375; 96376; 99284; J1170; J1885; J2405; J7030

== ENCOUNTER 2024-12-15 13:45 | Outpatient (CLI) | payer OTHER, SELFPAY ==
--- NOTE | ~2024-12-15 | MM_ITS ---
EXAMINATION: MM scrn jam implant BI w mila HISTORY: Screening mammogram TECHNIQUE: Craniocaudal and mediolateral oblique 3-D tomosynthesis images with implant displacement a nd synthetic 2-D images were generated. Craniocaudal and mediolateral oblique views of the breasts wi thout implant displacement were obtained using full field digital mammography. CAD analysis was submi tted and interpreted. COMPARISON: Comparison to multiple prior studies sequentially, with oldest reviewed study dated 04/01. BREAST PARENCHYMAL COMPOSITION: Not dense: There are scattered areas of fibroglandular density. FINDINGS: There is no evidence of suspicious mass, calcification, or architectural distortion to sugg est malignancy in either breast. There has been no suspicious interval change. IMPRESSION: 1. No mammographic evidence of malignancy. 2. Recommend routine screening mammography in one year. BI-RADS Category 1: Negative Reviewed, dictated and finalized at location A.
== END 2024-12-15 13:46 | disposition home or self-care (01) ==
LOC: MICIMG 13:47
PROVIDERS: PCP Nurse Practitioner Family; Visit Provider Obstetrics & Gynecology Gynecology
DX: Z12.31 Encounter for screening mammogram for malignant neoplasm of breast (principal); Z98.82 Breast implant status
CPT/HCPCS: 77063; 77067

== ENCOUNTER 2025-03-05 14:04 | Outpatient (CLI) | payer MEDICARE, SELFPAY ==
--- OUTSIDE RECORDS SUMMARY | 2025-02-17 08:00 | XMS_ITS ---
[facility] Address [address] [place], [place] [id number] Care Team Providers Care Behavioral Health Care Coordinator Name Role Phone MARGO LUGO Unavailable [phone] Isauro Faye Unavailable Unavailable Allergies No Known Allergies REASON FOR VISIT Great toe removed BE pt coming to be Medications Medication SIG (Take, Route, Fr equency, Duration) Notes Start Date End Date Status Albuterol Active Meloxicam Active hydrALAZINE HCl Acti ve rOPINIRole HCl Activ e Rosuvastatin Calcium Active traMADol HCl Active Trelegy Ellipta Acti ve Clotrimazole 1 % 1 application [employer] ally Once a day; Duration: 30 days 02/19/2025 02/14/2026 Active Vital Signs Height 64 in 02/17/2025 Weight 156 lbs 02/17/2025 BMI 26.77 kg/m2 02/17/2025 Height-cm 162.56 cm 02/17/2025 Weight-kg 70.76 kg 02/17/2025 Encounters Encounter Location Date Provider Diagnosis [facility] [address] [place], [place] [id number] 02/17/2025 MARGO LUGO Tinea unguium B35.1 Assessments Encounter Date Diagnosis (ICD Code) Assessment Notes Treatment Notes Treatment Clinical Notes Section Notes 02/17/2025 Tinea unguium (ICD-10 - B35.1) Plan Of Treatment Medication Medication Name Sig Start Date Stop Date Notes Clotrimazole 1 % 1 application [employer] ally Once a day; Duration: 30 days 02/19/2025 02/14/2026 Next Appt Details Provider Name:MARGO DURANT, 03/25/2025 01:50:00 PM, [address], [facility], [place], [place], [id number], Progress Notes * Marlyn AUGUSTB:1955 (69 yo F)Acc No.[id number]:02/17/2025 Progress Notes Patient: Denise ARCHIBALD Provider: Rodney LUGO :1955 A ge:69 Y S ex:Female Date:02/17/2025 Address:[address] [place], [place] [id number] Subjective: * Chief Complaints: * 1 . Great toe removed BE pt coming to be. * HPI: H PI: New Complaint P atient presents for a new patient consultation., Patient complains of an issue to right foot. Patient states her big toenail is thick. Patient denies any injury., MA: betty. * Medical History: F ibromyalgia, Neuropathy, Asthma/Bronchitis, Arthritis, High blood pressure. * Family History: N o Family History documented.. * Medications: T aking traMADol HCl , Taking Trelegy Ellipta , Taking rOPINIRole HCl , Taking Rosuvastatin Calcium , Taking Meloxicam , Taking hydrALAZINE HCl , Taking Albuterol , Medication List reviewed and reconciled with the patient * Allergies: N .K.D.A. Objective: * Vitals: S hoe Size: 8, Wt:156lbs, Wt-k.76 kg, Ht: 64 in, Ht-cm: 162.56 cm, BMI:26.77Index, Body Surface Area: 1.79. Assessment: * Assessment: 1. T inea unguium - B35.1 (Primary) Plan: * Treatment: * Preventive Medicine: Screenings: F all risk screening F all Risk Assessment: N o falls in the past year. * Billing Information: * Visit Code: * Procedure Codes: * Electronic signature of ISSA LUGO DPM on 03/05/2025 at 02:19 PM CDT Sign off status: Pending * Provider: Rodney LUGO Date: 0 02/17/2025 Generated for Adalgisa scott/Kristin/eTransmitting on: 0 03/05/2025 02:19 PM CDT History and Physical Notes * HPI (History of Present Illness) Category Sub-Category Detail Notes Category Not es HPI New Complaint Patient presents for a new patient consultation., Patient complains of an issue to right foot. Patient states her big toenail is thick. Patient denies any injury., MA: betty
--- NOTE | ~2025-03-05 | XR_ITS ---
XR abdomen/kub 1V 03/05/2025 14:23 INDICATION: History of kidney stones TECHNIQUE: KUB COMPARISON: None FINDINGS: Bowel gas pattern is normal. There is no evidence of free air, mass, organomegaly, ascites or obstruction. No abnormal calculi are seen. The bones appear intact. There is a battery pack in stimulator lead overlying the pelvis. Mild lumbar spondylosis with levoscoliosis. IMPRESSION: 1: No acute abdominal abnormality identified. Reviewed, dictated and finalized at location O.
--- OUTSIDE RECORDS SUMMARY | 2025-03-05 14:20 | XMS_ITS | Clinical Summary ---
Author Organization [facility] Address [facility] [place] [address] Care Team Providers Care Staff Writer Name Role Phone Umang Torres DO Primary Care Provider [phone] Social History Tobacco Use Types Packs/Day Years Used Date Smoking Tobacco: Never Assessed Comments Unknown Sex and Gender Information Value Date Recorded Sex Assigned at Not on file Legal Sex Female 4:50 PM CDT Gender Identity Not on file Sexual Orientation Not on file Plan of Treatment Health Maintenance Due Date Last Done Comments Colorectal Cancer Screening Colonoscopy (10 Years) 1955 Hepatitis C 12/05/1971 DTaP, Tdap and Td Vaccines ( 1 - Tdap) 1972 Mammogram Screening 1993 Pneumococcal Vaccine: 50+ Ye ars (1 of 1 - PCV) 12/05/2003 Zoster Vaccines (1 of 2) 12/05/2003 Annual Medicare Wellness Visit 2018 Dexa Scan (General) 2018 COVID-19 Vaccine ( - 2023-2 5 season) 2025 RSV Immunization or 60+ Years (1 - 1-dose 75+ series) 2028 Meningococcal B Vaccine Aged Out No l onger eligible based on patient's age to complete this topic Meningococcal Vaccine Aged Out No jacobo galen eligible based on patient's age to complete this topic RSV Immunizations Under 20 Months Aged Out No longer eligible based on patient's age to complete this topic Insurance [facility] MEDICARE Care Teams Staff Writer Relationship Specialty Start Date End Date Umang Torres DO [address] [address] PCP - General INTERNAL MEDICINE 12/23/21
--- OUTSIDE RECORDS SUMMARY | 2025-03-05 14:20 | XMS_ITS | Clinical Summary ---
Author Organization [facility] Address [address] [place] [address] Care Team Providers Care Orchard Manager Name Role Phone Claudia Luna THEATRICAL AGENT Unavailable [phone] Isauro Faye MD Primary Care Provider [phone] Allergies Active Allergy Reactions Criticality Noted Date Comments Sulfa (Sulfonamide Antibiotics) Vancomycin Hives Reaction: Hives, Medications omega-3 fatty acids-vitamin E (FISH OIL) 1,000 mg capsule take 2 Capsule by oral route once 0 0 04/19/2015 Active hydrALAZINE (APRESOLINE) 25 mg tablet take 1 tablet by oral route 4 times every day with food 0 0 10/21/2015 Active ergocalciferol (VITAMIN D2) 50,000 unit capsule take 1 capsule by oral route every week 0 0 10/02/2014 Active multivitamin tablet tablet take 1 by Oral route once 0 0 10/02/2014 Active traMADol (ULTRAM) 50 mg tablet take 1 tablet by oral route every 6 hours as needed 0 0 12/28/2014 Active coenzyme Q10 (COQ-10) 100 mg capsule take 1 by Oral route 2 times every day 0 0 11/09/2015 Active losartan (COZAAR) 100 mg tablet take 1 tablet by oral route every day 0 0 04/19/2015 Active gabapentin (NEURONTIN) 300 mg capsule Take by mouth daily Takes 100 mg 1 04/22/2018 Active cyanocobalamin (Vitamin B-12) 500 mcg tablet Take by mouth daily Active albuterol HFA (PROVENTIL HFA,VENTOLIN HFA,PROAIR HFA) 90 mcg/actuation inhaler as needed 03/17/2020 Active rosuvastatin (CRESTOR) 10 mg tablet Take 1 tablet (10 mg total) by mouth daily 03/01/2020 Active zinc 50 mg tablet Take by mouth Active meloxicam (MOBIC) 7.5 mg tablet TAKE 1 TABLET BY MOUTH EVERY DAY 30 tablet 04/19/2021 Active Trelegy Ellipta 100-62.5-25 mcg inhaler 10/15/2022 Active ginkgo biloba 40 mg tablet Take by mouth Active Active Problems Problem Noted Date Diagnosed Date Mixed hyperlipidemia 09/02/2018 Overview (04/01/2020): 06/19 Cholesterol 197 HDL 87 LDL 80 triglyceride 152, normal CMP 06/18 Cholesterol 255 HDL 82 LDL 139 triglyceride 171, virtually normal CMP 07/19 Cholesterol 198 HDL 96 LDL 66 triglyceride 182, AST 29 ALT 24 glucose 101 Assessment & Plan (05/16/2024 8:01 AM FENCE INSTALLER HELPER): Stable continue Crestor TAN (dyspnea on exertion) 08/30/2018 Pain in both lower extremities 08/30/2018 Overview (04/01/2020): 09/17 FRANK: rest ABIs normal (1.23 R, 1.19 L) with biphasic to triphsic PVRs -> exercise ABIs normal (1.11 R, 0.98 L) with bilateral biphasic PVRs Precordial pain 08/30/2018 Overview (04/01/2020): 11/13 stress echo 10:48--89% maximal heart rate, no EKG/echo ischemia normal LVEF, hypertensive BP response 140/98 -> 204/98 03/16 cardiopulmonary stress test to 81% maximal heart rate, no ischemia 09/17 EKG: SR at 72, RSR' in V3 & inferior leads with normal QRS duration (78 ms) 09/17 stress nuclear 9:00--83% maximal heart rate, +CP, no EKG or nuclear ischemia, EF 82%, exercise tolerance 160% predicted Fibromyalgia 05/01/2018 Assessment & Plan (05/19/2018 9:25 PM FENCE INSTALLER HELPER): Patient with fibromyalgia presents for scheduled follow up. She stopped savella due to interaction with gabapentin. Gabapentin was prescribed by Dr. Toan Otero (pain management) and has helped. She is finally getting some sleep. Continue present regimen. Atherosclerosis of right carotid artery 09/11/19 18 Alopecia 08/24/2016 Overview (10/06/2016): Alopecia Bilateral carotid artery stenosis 07/31/2016 Overview (04/01/2020): 03/12 carotid duplex: 50-79% right ICA, 50% left ICA, antegrade vertebrals 09/17 carotid duplex: 50-79% right ICA, <15% left ICA Carotid stenosis 07/31/2016 Assessment & Plan (05/16/2024 8:01 AM FENCE INSTALLER HELPER): Moderate 50-69% stenosis of the right ICA, asymptomatic. Continue ongoing surveillance with a repeat carotid duplex in 1 year. Continue risk factor modification with ASA, statin therapy good blood pressure control. Disorder of intervertebral disc 04/19/2015 Overview (10/06/2016): Lumbar disc disease Hemochromatosis 04/09/2014 Overview (10/06/2016): Hemochromatosis Assessment & Plan (05/19/2018 9:28 PM FENCE INSTALLER HELPER): Recent therapeutic phlebotomy Fibrositis 04/09/2014 Overview (10/06/2016): Fibromyalgia Peripheral nerve disease 04/09/2014 Overview (10/06/2016): Peripheral neuropathy Essential hypertension 04/09/2014 Overview (10/06/2016): Essential hypertension Assessment & Plan (05/16/2024 8:01 AM FENCE INSTALLER HELPER): Stable continue losartan Encounters Date Type Department Care Team Description 01/21/2025 2:45 PM CDT Infusion [facility] at [address] [place] [address] Hemochromatosis, unspecified hemochromatosis type (Primary Dx); Hemochromatosis, hereditary 01/21/2025 2:15 PM CDT Lab [facility] at [address] [address] Hemochromatosis, hereditary from Last 3 Months Surgical History Surgery Date Site/Laterality Comments TOTAL ABDOMINAL HYSTERECTOMY Hysterectomy, total COLONOSCOPY Medical History Medical History Date Comments Hx Other Medical 1992 bladder repair; Comments: JAW 04/09/2014 - Hx Other Medical 1957 herniated disc- neck; Comments: JAW 04/09/2014 - Hx Other Medical 1986 herniated disc- back; Comments: JAW 04/09/2014 - Hx Other Medical 2008 mrsa removal-fo ot; Comments: JAW 04/09/2014 - Hemochromatosis Asthma Allergic rhinitis Family History Medical History Relation Name Comments Other Brother 2 Alive and well; Other Father gun shot; Cause of : gun shot/Unknown; Heart attack Mother Myocardial infa rction; Cause of : Myocardial infarction/Myocardial infarction; Other Sister 2 Alive and well; Relation Name Status Comments Brother 1 Alive Brother 2 Father Mother Sister 1 Alive Sister 2 Social History Tobacco Use Types Packs/Day Years Used Date Smoking Tobacco: Former Cigarettes 1 15 Smokeless Tobacco: Never Comments:Smoking History Pac ks/day: 1 Packs Alcohol Use Standard Drinks/Week Comments No 0 (1 standard drink = 0.6 oz pur e alcohol) AUDIT-C Answer Date Recorded Frequency of Alcohol Consumption Not on file 04/23/2023 Q2: How many drinks containi ng alcohol do you have on a typical day when you are drinking? Patient does not drink Frequency of Binge Drinking Not on file 04/02 PHQ-2 Answer Date Recorded PHQ-2 Score 0 02/20/2019 Comments Unknown Sex and Gender Information Value Date Recorded Sex Assigned at Not on file Legal Sex Female 10:53 AM FENCE INSTALLER HELPER Gender Identity Not on file Sexual Orientation Not on file Obstetrics History Last Filed Vital Signs Vital Sign Reading Time Taken Comments Blood Pressure 112/65 01/21/2025 2:28 PM CDT Pulse 100 01/21/2025 2:28 PM CDT Temperature 36.9 C (98.5 F) 01/21/2025 2:28 PM CDT Respiratory Rate 16 01/21/2025 2:28 PM CDT Oxygen Saturation 98% 01/21/2025 2:28 PM CDT Inhaled Oxygen Concentration - - Weight 71.6 kg (157 lb 12.8 oz) 01/21/2025 2:28 PM CDT w/ shoes Height 160.7 cm (5' 3.25) 07/09/2024 2:54 PM CS T Body Mass Index 27.73 07/09/2024 2:54 PM FENCE INSTALLER HELPER Plan of Treatment Health Maintenance Due Date Last Done Comments Breast Cancer Screening-Mammogram 1955 Colon Cancer Screening-Colonoscopy 1955 Hepatitis C Screening 1955 Osteoporosis Screening-Bone Density Scan 1955 DTaP/Tdap/Td Vaccine (1 - Tdap) 1964 Hepatitis B Screening 12/05/1971 Pneumococcal vaccine 65+ (1 of 2 - PCV) 1972 Zoster Vaccine (1 of 2) 12/05/2003 Well Visit 65+ 2018 Depression Screening 10/22/2019 10/21/2018 Fall Risk Assessment 10/22/2019 10/21/2018 Influenza Vaccine (#1) 2025 Procedures Procedure Name Priority Date/Time Associated Diagnosis Comments EGFR Routine 01/21/2025 2:15 PM CDT Hemochromatosis, hereditary DIFFERENTIAL AUTO Routine 01/21/2025 2:1 5 PM CDT Hemochromatosis, hereditary CBC WITH AUTO DIFFERENTIAL Routine 01/21/2025 2:15 PM CDT Hemochromatosis, hereditary FERRITIN Routine 01/21/2025 2:15 PM CDT Hemochromatosis, hereditary RETICULOCYTES Routine 01/21/2025 2:15 PM CDT Hemochromatosis, hereditary IRON PROFILE W/ IBC Routine 01/21/2025 2 :15 PM CDT Hemochromatosis, hereditary COMPREHENSIVE METABOLIC PANEL Routine 01/21/2025 2:15 PM CDT Hemochromatosis, hereditary from Last 3 Months Results * eGFR (01/21/2025 2:15 PM CDT) eGFR 68 >=60 mL/min/1. 73 m2 Comment: Interpretive Data Reference Interval Normal >/= 90 mL/min/1.73m2 Mildly decreased* 60 - 89 mL/min/1.73m2 Mildly to moderately decreased 45 - 59 mL/min/1.73m2 Moderately to severely decreased 30 - 44 mL/min/1.73m2 Severely decreased 15 - 29 mL/min/1.73m2 Kidney Failure < 15 mL/min/1.73m2 *Relative to young adult level Estimated glomerular filtration rate is determined by the 2020 CKD-EPI equation recommended by the National Kidney Foundation (A Unifying Approach to GFR Estimation: Recommendations of the NKF-ASK Task Force on Reassessing the Inclusion of Race in Diagnosing Kidney Disease, JASN 2020). The CKD-EPI equation should not be used for patients with unstable renal function and has not been validated in children and those over 70. Current interpretive data was last reviewed 2021. Testing performed by: [address] [address] Blood 01/21/2025 2:15 PM CDT 01/21/2025 2:17 PM CDT us Angélica Jones NP LAB BLOOD ORDERABLES Final Result Performing Organization Address City/State/[facility] Co de Phone Number [facility] [address] [facility] Department [place] [address] * Differential, auto (01/21/2025 2:15 PM CDT) Neutrophil abs 4.74 1.50 - 6.50 K/cumm Comment:Testing performed by : [address] [address] Imm gran abs 0.01 0.00 - 0.10 K/cumm HATTIE Comment:Testing performed by : [address] [address] Lymphocyte abs 1.70 0.80 - 3.30 K/cumm HATTIE Comment:Testing performed by : [address] [address] Monocyte abs 0.48 0.20 - 0.80 K/cumm [facility] Comment:Testing performed by : [address] [address] Eosinophil abs 0.11 0.00 - 0.50 K/cumm [facility] Comment:Testing performed by : [address] [address] Basophil abs 0.03 0.00 - 0.10 K/cumm [facility] Comment:Testing performed by : [address] [address] Neutrophil pct 67.1 % [facility] Comment: Interpretive Data Percent cell count reference ranges are not reported, since discordance with absolute values may lead to misinterpretation of CBC data. Current Interpretive Data was last revised on 2017. Testing performed by: [address] [address] Imm gran pct 0.1 % [facility] Comment: Interpretive Data Percent cell count reference ranges are not reported, since discordance with absolute values may lead to misinterpretation of CBC data. Current Interpretive Data was last revised on 2017. Testing performed by: [address] [address] Lymphocyte pct 24.0 % [facility] Comment: Interpretive Data Percent cell count reference ranges are not reported, since discordance with absolute values may lead to misinterpretation of CBC data. Current Interpretive Data was last revised on 2017. Testing performed by: [address] [address] Monocyte pct 6.8 % [facility] Comment: Interpretive Data Percent cell count reference ranges are not reported, since discordance with absolute values may lead to misinterpretation of CBC data. Current Interpretive Data was last revised on 2017. Testing performed by: [address] [address] Eosinophil pct 1.6 % [facility] Comment: Interpretive Data Percent cell count reference ranges are not reported, since discordance with absolute values may lead to misinterpretation of CBC data. Current Interpretive Data was last revised on 2017. Testing performed by: [address] [address] Basophil pct 0.4 % HATTIE WOOD Comment: Interpretive Data Percent cell count reference ranges are not reported, since discordance with absolute values may lead to misinterpretation of CBC data. Current Interpretive Data was last revised on 2017. Testing performed by: [address] [address] Blood 01/21/2025 2:15 PM CDT 01/21/2025 2:17 PM CDT Angélica Jones THEATRICAL AGENT LAB BLOOD ORDERABLES Final Result Performing Organization Address [facility] de Phone Number HATTIE [facility] [place] [address] * (ABNORMAL) Iron profile w/ IBC (01/21/2025 2:15 PM CDT) Pathologist [facility] Iron 191(H) 35 - 145 mcg/dL Comment:Testing performed by : [address] [address] TIBC 330 250 - 400 mcg/dL HATTIE WOOD Comment:Testing performed by : [address] [address] Transferrin saturation 58(H) 20 - 50 % HATTIE WOOD Comment:Testing performed by : [address] [address] Blood 01/21/2025 2:15 PM CDT 01/21/2025 4:25 PM CDT Angélica Jones THEATRICAL AGENT LAB BLOOD ORDERABLES Final Result Performing Organization Address [facility] Co de Phone Number [facility] [address] [facility] [place] [address] * CBC with auto differential (01/21/2025 2:15 PM CDT) WBC 7.07 3.80 - 9.90 K/cumm Comment:Testing performed by : [address], [address] Hgb 14.3 11.9 - 15.5 g/dL HATTIE Comment:Testing performed by : [address], [address] Hct 40.9 35.6 - 45.5 % HATTIE Comment:Testing performed by : [address] [address] Plt 208 150 - 400 K/cumm HATTIE Comment:Testing performed by : [address], [address] MPV 10.3 9.1 - 12.3 fL HATTIE Comment:Testing performed by : [address], [address] RBC 4.51 3.90 - 5.20 M/cumm HATTIE Comment:Testing performed by : [address], [address] MCV 90.7 81.3 - 96.4 fL HATTIE Comment:Testing performed by : [address], [address] MCH 31.7 27.1 - 33.3 pg HATTIE Comment:Testing performed by : [address], [address] MCHC 35.0 32.3 - 35.7 g/dL HATTIE Comment:Testing performed by : [address], [address] RDW CV 12.4 11.1 - 14.9 % HATTIE Comment:Testing performed by : [address], [address] RDW SD 41.0 35.7 - 48.1 fL [facility] Comment:Testing performed by : [address], [address] NRBC abs 0.00 0.00 - 0.01 K/cumm HATTIE Comment:Testing performed by : [address] [address] ANC Prelim 4.74 1.50 - 6.50 K/cumm HATTIE Comment: Interpretive Data The rapid ANC is a preliminary automated count and may vary from the final ANC (Neut Abs) reported in the WBC differential that follows. Current interpretive data was last revised 2024. Testing performed by: [address] [address] Blood 01/21/2025 2:15 PM CDT 01/21/2025 2:17 PM CDT Angélica Jones THEATRICAL AGENT LAB BLOOD ORDERABLES Final Result Performing Organization Address [facility] Co de Phone Number [address] [place] [address] * Reticulocyte Count (01/21/2025 2:15 PM CDT) [facility] Retics, absolute 59 20 - 87 K/cumm Comment:Testing performed by : [address] [address] Retics 1.3 0.4 - 2.9 % HATTIE Comment:Testing performed by : [address] [address] Reticulocyte Hgb 35.9 30.5 - 38.0 pg HATTIE Comment:Testing performed by : [address] [address] Blood 01/21/2025 2:15 PM CDT 01/21/2025 2:17 PM CDT Angélica Jones THEATRICAL AGENT LAB BLOOD ORDERABLES Final Result Performing Organization Address [facility] Co de Phone Number [place] [phone] [facility] [place] [address] * Ferritin (01/21/2025 2:15 PM CDT) [facility] Ferritin 76 13 - 150 ng/mL Comment:Testing performed by : [address] [address] Blood 01/21/2025 2:15 PM CDT 01/21/2025 4:25 PM CDT us Angélica Jones BRIE LAB BLOOD ORDERABLES Final Result HATTIE [address] [facility] Department [place] [address] * Comprehensive metabolic panel (01/21/2025 2:15 PM CDT) Sodium 139 135 - 145 mmol/L Comment:Testing performed by : [address] [address] Potassium, pl 4.9 3.3 - 4.9 mmol/L HATTIE Comment:Testing performed by : [address] [address] Chloride 104 97 - 110 mmol/L HATTIE Comment:Testing performed by : [address] [address] CO2 24 22 - 32 mmol/L HATTIE Comment:Testing performed by : [address] [address] Anion gap 11 2 - 15 mmol/L HATTIE Comment:Testing performed by : [address] [address] BUN 25 6 - 25 mg/dL HATTIE Comment:Testing performed by : [address] [address] Creatinine 0.90 0.60 - 1.10 mg/dL HATTIE Comment:Testing performed by : [address] [address] Glucose 103 70 - 199 mg/dL HATTIE Comment: Interpretive Data Fasting glucose >/= 126 mg/dl is diagnostic for diabetes. Fasting is defined as no caloric intake for at least 8 hours. Fasting glucose between 100 mg/dl to 125 mg/dl is diagnostic of prediabetes. In a patient with classic symptoms of hyperglycemia or hyperglycemic crisis, a random glucose >/= 200 mg/dl is diagnostic for diabetes. In the absence of unequivocal hyperglycemia, results should be confirmed by repeat testing. The classification and Diagnosis of Diabetes Diabetes Care 202; 46: S19-S40. Current interpretive data was last revised 2022. Testing performed by: [address] [address] Calcium 9.4 8.5 - 10.3 mg/dL HATTIE Comment:Testing performed by : [address] [address] Bilirubin, total 0.3 0.1 - 1.2 mg/dL HATTIE Comment:Testing performed by : [address] [address] Protein, pl 6.7 6.5 - 8.5 g/dL HATTIE Comment:Testing performed by : [address] [address] Albumin 4.3 3.5 - 5.0 g/dL HATTIE Comment:Testing performed by : [address] [address] Alk phos 88 40 - 130 Units/L HATTIE Comment:Testing performed by : [address] [address] ALT 38 7 - 45 Units/L HATTIE Comment:Testing performed by : [address] [address] AST 45 10 - 45 Units/L HATTIE Comment: HEMOLYZED: Hemolysis interferes with the above test. Testing performed by: [address] [address] Blood 01/21/2025 2:15 PM CDT 01/21/2025 2:17 PM CDT Angélica Jones THEATRICAL AGENT LAB BLOOD ORDERABLES Final Result HATTIE [address] [facility] Department [place] [address] from Last 3 Months Insurance [facility] MEDICARE ADVANTAGE Care Teams Orchard Manager Relationship Specialty Start Date End Date Isauro Faye MD [address] [place] [address] PCP - General Family Practice 05/12/24 Claudia Luna, BRIE [address] [place] [address] Nurse Practitioner Medical Oncology 10/13/22
--- OUTSIDE RECORDS SUMMARY | 2025-03-05 14:20 | XMS_ITS | Clinical Summary ---
Author Organization [facility] Address [address] [place] [address] Care Team Providers Care Nurse Assistant Name Role Phone Eugene Calabrese MD Primary Care Provider [phone] Source Comments [facility],non-owned Affiliates and Associated Physician Practices is amultiple site organization consisting of ambulatory clinics and hospital sitesin [place], [place], [place] and [place]. This disclosure is being madepursuant to the Care Everywhere program and may not contain all information available regarding this patient. Last updated 18.[facility] Allergies Active Allergy Reactions Criticality Noted Date Comments Azithromycin Itching 08/29/2018 hives Pravastatin Myalgias 09/02/2018 40 mg dose caused muscle aches Sulfa Drugs Nausea and/or Vomiting 05/01/2019 Vancomycin Urticaria,Itching Medium 05/01/2019 Medications * Be aware that medications may not be up to date on this document. Alwaysverify current medications with the patient. losartan (COZAAR) 100 MG tablet Take 100 mg by mouth once daily 5 Active aspirin (ASPIRIN) 81 MG tablet Take 81 mg by mouth once daily Active Coenzyme Q10 (CO Q-10) 100 MG Take by mouth once daily Active estradiol (ESTRACE) 1 MG tablet Take 1 mg by mouth once daily Active Bristol-3 Fatty Acids (FISH OIL) 1000 MG capsule 2 tablets once daily Active meloxicam (MOBIC) 15 MG tablet Take 15 mg by mouth once daily Active multivitamin daily tablet Take 1 tablet by mouth daily with food Active traMADol (ULTRAM) 50 MG tablet Take 50 mg by mouth every 6 hours as needed for Pain Active Ergocalciferol (VITAMIN D2 PO) Take 50,000 Units by mouth every 7 days Active Cyanocobalamin (B-12 PO) Take by mouth once daily Active fluticasone-peter anterol (BREO ELLIPTA) 100-25 MCG/INH inhaler Inhale 1 puff by mouth once daily Administer at the same time each day. Rinse mouth after using Active rosuvastatin (CRESTOR) 10 MG tablet TAKE 1 TABLET BY MOUTH EVERY DAY 90 tablet 4 0 Active amLODIPine (NORVASC) 2.5 MG tablet Take 1 tablet by mouth at bedtime 90 tablet 4 0 Active gabapentin (NEURONTIN) 300 MG capsule Take 300 mg by mouth at bedtime Active hydrALAZINE (APRESOLINE) 25 MG tablet Take 1 tablet by mouth 2 times daily 0 Active Active Problems Problem Noted Date Diagnosed Date Essential hypertension 09/02/2018 Mixed hyperlipidemia 09/02/2018 Overview (03/11/2020): 06/19 Cholesterol 197 HDL 87 LDL 80 triglyceride 152, normal CMP 06/18 Cholesterol 255 HDL 82 LDL 139 triglyceride 171, virtually normal CMP 07/19 Cholesterol 198 HDL 96 LDL 66 triglyceride 182, AST 29 ALT 24 glucose 101 Precordial pain 08/30/2018 Overview (10/17/2018): 11/13 stress echo 10:48--89% maximal heart rate, [...] ischemia, EF 82%, exercise tolerance 160% predicted TAN (dyspnea on exertion) 08/30/2018 Pain in both lower extremities 08/30/2018 Overview (09/22/2018): 09/17 FRANK: rest ABIs normal (1.23 R, 1.19 L) with biphasic to triphsic PVRs -> exercise ABIs normal (1.11 R, 0.98 L) with bilateral biphasic PVRs Bilateral carotid artery stenosis 08/30/2018 Overview (09/25/2018): 03/12 carotid duplex: 50-79% right ICA, 50% left ICA, antegrade vertebrals 09/17 carotid duplex: 50-79% right ICA, <15% left ICA Resolved Problems Problem Noted Date Diagnosed Date Resolved Date Hypertriglyceridemia, mild 08/30/2018 0 10/17/2018 Family History Relation Name Status Comments Brother 1 (Age 45) no known h eart dz; liver dz Brother 2 Alive no heart diseas e, hypn Father (Age 63) no heart d isease Mother (Age 64) mi & stent s at age 64 Sister 1 Alive no heart diseas e, hypn Sister 2 Alive CVA at 44 Son Alive no heart dz Social History Tobacco Use Types Packs/Day Years Used Date Smoking Tobacco: Former Cigarettes 1.5 30 0 07/02/1974 - 07/02/2004 Smokeless Tobacco: Never Alcohol Use Standard Drinks/Week Comments Yes 0 (1 standard drink = 0.6 oz pur e alcohol) 0-1 per week Comments Unknown Sex and Gender Information Value Date Recorded Sex Assigned at Not on file Legal Sex Female 7:02 PM [employer]ARY ENG[employer] Gender Identity Not on file Sexual Orientation Not on file Occupation Industry Job Start Date Job End Date retired Not on file Not on file Not on file Last Filed Vital Signs Vital Sign Reading Time Taken Comments Blood Pressure 116/72 03/11/2020 2:51 PM CDT Pulse 78 03/11/2020 2:51 PM CDT Temperature - - Respiratory Rate 12 05/01/2019 11:36 AM CDT Oxygen Saturation 98% 03/11/2020 2:51 PM CDT Inhaled Oxygen Concentration - - Weight 72.1 kg (159 lb) 03/11/2020 2:51 PM CDT Height 163.8 cm (5' 4.5) 03/11/2020 2:51 PM CDT Body Mass Index 26.87 03/11/2020 2:51 PM CDT Plan of Treatment Health Maintenance Due Date Last Done Comments BONE DENSITY TESTING 1955 COLOGUARD (AGES 45-75) - COL ON CA SCREENING 1955 COLON MONITORING 1955 COLONOSCOPY - COLON CA SCREENING 1955 CT COLONOGRAPHY - COLON CA SCREENING 1955 Colorectal Cancer Screening 1955 FIT - COLON CA SCREENING 1955 FLEX SIG - COLON CA SCREENING 1955 MAMMOGRAM 1955 HEPATITIS C SCREENING 11/30/1971 DTAP/TDAP/TD VACCINES (1 - Tdap) 1972 LUNG CANCER SCREENING 12/05/2003 PNEUMOCOCCAL VACCINE 50+ (1 of 1 - PCV) 12/05/2003 ZOSTER VACCINE (1 of 2) 12/05/2003 SCREENING FOR DIABETES 09/02/2018 COVID-19 VACCINE (1 - 2023-2 5 season) 2024 DEPRESSION SCREENING 07/02/2024 INFLUENZA VACCINE (#1) 2025 Respiratory Syncytial Virus (RSV) Vaccine Pt: or over 60 yrs (1 - 1-dose 75+ series) 2028 HEPATITIS B VACCINE Aged Out No longe r eligible based on patient's age to complete this topic HIB VACCINE Aged Out No longer eligi ble based on patient's age to complete this topic HPV VACCINE Aged Out No longer eligi ble based on patient's age to complete this topic MENINGOCOCCAL (Group B) VACC INE SHARED DECISION-MAKING Aged Out No longer eligibl e based on patient's age to complete this topic MENINGOCOCCAL GROUPS A/C/Y/W VACCINE Aged Out No longer eligible b ased on patient's age to complete this topic Insurance [facility] MANAGED MEDICARE ADV Care Teams Nurse Assistant Relationship Specialty Start Date End Date Eugene Calabrese MD [address] [place] [address] PCP - General 12/17/12
--- OUTSIDE RECORDS SUMMARY | 2025-03-05 14:20 | XMS_ITS | Patient Health Record ---
Author Organization [facility] Address [address] [place], [place] [id number] Care Team Providers Care Community Relations Manager Name Role Phone MARGO LUGO Unavailable [phone] Isauro Faye Unavailable Unavailable Allergies No Known Allergies Reason For Referral No Information Medications Medication SIG (Take, Route, Fr equency, Duration) Notes Start Date End Date Status Albuterol Active Meloxicam Active hydrALAZINE HCl Acti ve rOPINIRole HCl Activ e Rosuvastatin Calcium Active traMADol HCl Active Trelegy Ellipta Acti ve Clotrimazole 1 % 1 application [employer] Manager ally Once a day; Duration: 30 days 02/19/2025 02/14/2026 Active Vital Signs Height-cm 162.56 cm 02/17/2025 Weight-kg 70.76 kg 02/17/2025 Height 64 in 02/17/2025 Weight 156 lbs 02/17/2025 BMI 26.77 kg/m2 02/17/2025 Encounters Encounter Location Date Provider Diagnosis [facility] [address] [place], [place] [id number] 02/17/2025 MARGO LUGO Tinea unguium B35.1 [facility] [address] [place], [place] [id number] 02/18/2025 MARGO LUGO Assessments Encounter Date Diagnosis (ICD Code) Assessment Notes Treatment Notes Treatment Clinical Notes Section Notes 02/17/2025 Tinea unguium (ICD-10 - B35.1) Plan Of Treatment Next Appt Details Provider Name:MARGO DURANT, 03/25/2025 01:50:00 PM, [address], [place], [place], [id number], Insurance Providers Payer Name Payer Address Payer Phone Subscriber Number Group Number Insured Name Patient Relationship to Insured Coverage Start Date Coverage End Date [employer] [address] [place] [phone] [id number] Denise August Self - patient is the insured Medical (General) History Medical History History ICD Code fibromyalgia neuropathy Asthma/Bronchitis Arthritis high blood pressure
== END 2025-03-05 14:05 | disposition home or self-care (01) ==
PROVIDERS: PCP Nurse Practitioner Family; Visit Provider Physician Assistant
DX: Z87.442 Personal history of urinary calculi (principal)
CPT/HCPCS: 74018

== ENCOUNTER 2025-06-11 14:04 | Outpatient (CLI) | payer MEDICARE, SELFPAY ==
--- NOTE | ~2025-06-11 | DEXA_ITS ---
Bone Density Report Name: PORFIRIO CALHOUN Age: 69 Sex: Female Ethnicity: White Date of : 1955 Indication: postmenopausal; screening for osteoporosis; asthma or emphysema; hysterectomy; Referring Provider: GEORGE SHELBY Study: Bone densitometry was performed. Exam Date: June 11, 2025 Accession number: [id number] Bone Density: Region BMD T-score Z-score Classification AP Spine(L1, L2, L3) 1.316 2.7 4.9 Normal Femoral Neck (Left) 0.922 0.7 2.5 Normal Total Hip (Left) 0.993 0.4 2.0 Normal Femoral Neck (Right) 0.846 0.0 1.9 Normal Total Hip (Right) 1.055 0.9 2.5 Normal Total Hip Mean 1.024 0.7 2.3 Normal World Health Organization criteria for BMD impression classify patients as: Normal (T-score at or above -1.0), Osteopenia (T-score between -1.0 and -2.5), or Osteoporosis (T-score at or below -2.5). 10-year Fracture Risk: FRAX not reported because: All T-scores for Spine Total, Hip Total, Femoral Neck at or above -1.0 Previous Exams: -- Region Exam Age BMD T-score BMD Change BMD Change Date g/cm2 vs Baseline vs Previous -- AP Spine (L1-L3) 06/11/2025 69 1.316 2.7 31.7%* 0.7% 04/14/2022 66 1.307 2.6 30.9%* 6.0%* 02/21/2018 62 1.233 2.0 23.4%* 21.2%* 12/23/2012 57 1.018 0.0 1.8% -10.5%* 11/19/2009 53 1.137 1.1 13.8%* 15.6%* 11/04/2007 51 0.983 -0.3 -1.6% -1.6% 02/05/2006 50 0.999 -0.2 Total Hip(Left) 06/11/2025 69 0.993 0.4 -11.0%* -12.4%* 04/14/2022 66 1.134 1.6 1.6% -0.7% 02/21/2018 62 1.142 1.6 2.4% 2.7%* 12/23/2012 57 1.112 1.4 -0.3% -3.1%* 11/19/2009 53 1.147 1.7 2.8%* 5.3%* 11/04/2007 51 1.089 1.2 -2.4% -2.4% 02/05/2006 50 1.116 1.4 Total Hip(Right) 06/11/2025 69 1.055 0.9 -7.8%* -12.0%* 04/14/2022 66 1.200 2.1 4.9%* 2.5%* 02/21/2018 62 1.171 1.9 2.3% 4.7%* 12/23/2012 57 1.119 1.4 -2.3% -0.3% 11/19/2009 53 1.122 1.5 -1.9% 5.0%* 11/04/2007 51 1.069 1.0 -6.6%* -6.6%* 02/05/2006 50 1.144 1.7 -- *Denotes significance at 95% confidence level, LSC for AP Spine = 0.022 g/cm2, LSC for Total Hip = 0.027 g/cm2 Rate of change results reflect vertebral levels common to all scans Clinical Information Provided by Patient: Has used the following medications: HRT (i.e. estrogen/hormone therapy), Vitamin D Has the following medical conditions: Asthma or Emphysema, Hysterectomy Patient maximum height was 64 Menopause Age: 43 Drinks caffeinated beverages Onset of menses at age 11 Number of children 1 Impression: The patient has normal bone mass. The BMD for the Total Hip(Left) decreased, changing by -12.4% since the last DXA exam. The BMD for the Total Hip(Right) decreased, changing by -12.0% since the last DXA exam. Discussion: BONE DENSITY IS ABOVE THE MINIMUM DESIRABLE LEVEL AT ALL SKELETAL SITES TESTED. This patient?s bone mineral density is above the minimum desirable level (T-score -1.0 or better) at all sites measured. The patient should follow a healthful lifestyle (good nutrition with adequate calcium and vitamin D, and appropriate weight-bearing exercise). Follow-Up: Consider repeating this study in 3 to 4 years to reassess this patient's status, or sooner if there is some new clinical indication. Reported by: TOBIAS on 06/11/2025 2:29:00 PM. Reviewed, dictated and finalized at location A.
== END 2025-06-11 14:05 | disposition home or self-care (01) ==
LOC: MICIMG 14:05
PROVIDERS: PCP Nurse Practitioner Family; Visit Provider Obstetrics & Gynecology Gynecology
DX: Z13.820 Encounter for screening for osteoporosis (principal); Z78.0 Asymptomatic menopausal state
CPT/HCPCS: 77080